=== PATIENT | female | born 1985 | race Caucasian/White ===

== ENCOUNTER → 2017-10-29 | Outpatient (CLI) | payer BC ==
[2014-08-13 12:28] VITALS: BMI 24.1
[~2017-10-29] MED LIST: IBUP800T37 PO; MULT-1335 PO; PER PO
== END ==
LOC: LAB 13:34
PROVIDERS: ATTEND Obstetrics & Gynecology
DX: Z83.49 Family history of other endocrine, nutritional and metabolic diseases (principal)
CPT/HCPCS: 36415; 84443

== ENCOUNTER → 2017-11-05 | Outpatient (CLI) | payer BC ==
[2014-08-13 12:28] VITALS: BMI 24.1
--- NOTE | 2017-11-05 11:55 | RADIOLOGY IMAGING REPORT ---
FACILITY: [facility] PATIENT NAME: SEUN GRANT : [id number] MR: [id number] V: [id number] EXAM DATE: ORDERING PHYSICIAN: BELL ORTEZ TECHNOLOGIST: Airam Collins PROCEDURE:BILATERAL DIAGNOSTIC DIGITAL MAMMOGRAM WITH CAD ASSISTED INTERPRETATION & 3D TOMOSYNTHESIS COMPARISON:None. INDICATIONS:LEFT BREAST LUMP 3 O'CLOCK POSITION. FINDINGS: Moderately dense heterogeneous fibroglandular tissue is seen throughout the breasts. There is no demonstration of malignant appearing mass, malignant appearing calcifications or other secondary sign of malignancy in either breast. DIAGNOSTIC CATEGORY 2--BENIGN FINDING. RECOMMENDATIONS: CLINICAL EVALUATION. IMPRESSION: BIRADS 2: Benign finding No significant abnormality is seen therefore clinical follow-up recommend for patient's palpable findings in the 3 o'clock position of the Left breast. Dictated by: Brenda Devi M.D. on 11/05/2017 at 10:44 Transcribed by: CABRERA on 11/05/2017 at 11:15 Approved by: Brenda Devi M.D. on 11/05/2017 at 11:54 [facility]
--- NOTE | 2017-11-05 11:55 | RADIOLOGY IMAGING REPORT ---
FACILITY: [facility] PATIENT NAME: SEUN GRANT : [id number] MR: [id number] V: [id number] EXAM DATE: ORDERING PHYSICIAN: BELL ORTEZ TECHNOLOGIST: Anette Rincon PROCEDURE:US LEFT BREAST COMPLETE COMPARISON:None. INDICATIONS:LEFT BREAST LUMP APPROXIMATE 3 O'CLOCK POSITION FINDINGS: The Left breast was imaged revealing no sonographic abnormality other than a minimally prominent 1.6mm in diameter duct in the 3 o'clock position of the Left breast. Today's bilateral mammogram likewise revealed no abnormality therefore clinical follow-up recommend for patient's palpable findings. DIAGNOSTIC CATEGORY 2--BENIGN FINDING. RECOMMENDATIONS: CLINICAL EVALUATION. IMPRESSION: BIRADS 2: Benign finding No sonographic or mammographic finding identified to account for patient's palpable finding in the 3 o'clock position of the Left breast other than a minimally prominent duct therefore clinical follow-up recommended. Dictated by: Brenda Devi M.D. on 11/05/2017 at 10:42 Transcribed by: CABRERA on 11/05/2017 at 11:11 Approved by: Brenda Devi M.D. on 11/05/2017 at 11:54 [facility]
== END ==
LOC: MAMO 01:24
PROVIDERS: ATTEND Obstetrics & Gynecology
DX: R92.2 Inconclusive mammogram (principal)
CPT/HCPCS: 77066

== ENCOUNTER → 2018-04-28 | Outpatient (CLI) | payer BC ==
[2014-08-13 12:28] VITALS: BMI 24.1
== END ==
LOC: LAB 16:18
PROVIDERS: ATTEND Obstetrics & Gynecology
DX: Z86.718 Personal history of other venous thrombosis and embolism (principal)
CPT/HCPCS: 36415; 81241; 85300; 85303; 85306; 85610; 85613; 85730; 86146; 86147